=== PATIENT | female | born 1960 | race Caucasian/White ===

== ENCOUNTER 2021-02-28 08:37 | Inpatient (IN) | payer OTHER, SELFPAY ==
[~2021-02-28] VITALS: Ht 149.9 cm; Wt 49.9 kg
[2021-02-28] MEDS: ALBUTEROL SULFATE/IPRATROPIU 3 ML SOL IH SCH ×3 (08:18→20:35)
[2021-02-28 08:37] VITALS: BP 143/90
--- NOTE | 2021-02-28 08:37 | NUR ---
Patient BIBA to bed 3 at this time. Addendum: 02/28/21 at 0855 by JOSE CRUZ Patient BIBA to bed 2.
--- NOTE | 2021-02-28 08:45 | NUR ---
DR RAY AT [facility] EVALUATING PT
--- NOTE | 2021-02-28 08:50 | NUR ---
60 Y/O TRANSIENT FEMALE BIBA C/O BODY PAIN AND LOWER EXTREMITY SWELLING X2 MONTHS. PT HAS COUGH AND STATES DIFFICULTY BREATHING. +N/V. PER MEDICS, PT WAS LAYING ON THE SIDEWALK STATING SHE "COULDNT WALK". PT STATES SHES BEEN IN HOSPITALS RECENTLY BUT HAS NOT TAKEN ANY MEDICATIONS. PT UNABLE TO RECALL DIAGNOSIS. IV ACCESS PLACED, UNABLE TO DRAW LABS, RT AT BEDSIDE FOR ABG'S IN GURNEY, LOW POSITION, LOCKED, CALL LIGHT IN PLACE.
--- NOTE | 2021-02-28 09:10 | NUR ---
IV ACCESS OBTAINED, PLACED ON MONITORS. CORPORATE TAX PREPARER SHOWS SINUS TACH. POSITIONED FOR COMFORT, BED IS LOW AN LOCKED BELONGINGS BAGGED AND PLACED ON GURNEY WITH PATIENT. OCC DRY COUGH NOTED.
[2021-02-28 09:39] LABS: BASOPHILS # (AUTO) 0.1 K/uL (0.00-0.22); BASOPHILS % (AUTO) 1.1 % (0.0-2.0); EOSINOPHILS % (AUTO) 0.3 % (0.0-4.0); HEMATOCRIT 42.1 % (36-48); HEMOGLOBIN 13.3 g/dL (12.0-16.0); LYMPHOCYTES # (AUTO) 1.3 K/uL (2.5-16.5); LYMPHOCYTES % (AUTO) 17.2 % (20.5-51.1); MEAN CORPUSCULAR HEMOGLOBIN 28 pg (27-31); MEAN CORPUSCULAR HGB CONC 32 g/dL (33-37); MEAN CORPUSCULAR VOLUME 89.4 fL (80-94); MONOCYTES # (AUTO) 0.8 K/uL (0.8-1.0); MONOCYTES % (AUTO) 11.1 % (1.7-9.3); NEUTROPHILS # (AUTO) 5.1 K/uL (1.8-7.7); NEUTROPHILS % (AUTO) 70.3 % (42.2-75.2); PLATELET COUNT (AUTO) 252 K/uL (140-450); RED BLOOD CELL COUNT(AUTO) 4.71 MIL/uL (4.20-5.40); RED CELL DISTRIBUTION WIDTH 22.1 % (11.6-13.7); WHITE BLOOD COUNT (AUTO) 7.3 K/uL (4.8-10.8)
[2021-02-28 10:06] LABS: ALBUMIN 3.3 g/dL (3.4-5.0); ANION GAP 16.6 (8-16); CARBON DIOXIDE 21.8 mmol/L (21-32); CREATININE 1.3 mg/dL (0.6-1.3); POTASSIUM 5.4 mmol/L (3.5-5.1); TOTAL BILIRUBIN 1.7 mg/dL (0.0-1.0)
--- NOTE | 2021-02-28 10:10 | NUR ---
[facility] in [facility] - 02/28/21 at 1102 by JANELLE NORMAL SALINE 1000ML W/O INFUSING W/O PER DR VIEIRA VERBAL ORDER.
--- NOTE | 2021-02-28 10:13 | NUR ---
IV INFILATRATED, DC'D AND RESTARTED.
[2021-02-28] MEDS ORDERED: NACL 0.9% 1,000 ML IV ONE (10:50)
[2021-02-28] MEDS ORDERED: FUROSEMIDE 40 MG/4 ML VIAL IVP SCH (11:00)
[2021-02-28] MEDS ORDERED: ASPIRIN 81 MG TAB.CHEW PO ONE (11:00)
--- NOTE | 2021-02-28 11:02 | NUR ---
DR RAY STATES HE DID NOT ORDER FLUIDS, FLUIDS DC'D, 100 CC INFUSED.
[2021-02-28] MEDS ORDERED: POTASSIUM CHLORIDE 10 MEQ TABER PO PRN (11:15)
[2021-02-28] MEDS ORDERED: MAGNESIUM OXIDE 400 MG TAB PO PRN (11:15)
[2021-02-28] MEDS ORDERED: KCL 20 MEQ/WATER INJ PREMIX 200 ML IV PRN (11:15)
[2021-02-28] MEDS ORDERED: ONDANSETRON 4 MG/2 ML VIAL IVP PRN (11:15)
[2021-02-28] MEDS ORDERED: HYDROcodone/APAP 5/325 MG 1 TAB TAB PO PRN (11:15)
[2021-02-28] MEDS ORDERED: LORazepam 1 MG TAB PO PRN (11:15)
[2021-02-28] MEDS ORDERED: MAG SULF 2000 MG/WATER PREMIX 50 ML IV PRN (11:15)
[2021-02-28] MEDS ORDERED: ACETAMINOPHEN 325 MG TAB PO PRN (11:15)
[2021-02-28] MEDS: FUROSEMIDE 40 MG/4 ML VIAL IVP SCH (11:39)
--- NOTE | 2021-02-28 11:53 | NUR ---
TRANSFER OF CARE AT THIS TIME.
--- NOTE | 2021-02-28 12:02 | NUR ---
PT GIVEN BED ROEBRTS TO OBTAIN URINE SAMPLE
--- NOTE | 2021-02-28 12:40 | NUR ---
PT GIVEN LUNCH TRAY. PT ON PLANT AND EQUIPMENT WORKER MONITOR, VSS. WILL CONTINUE TO MONITOR
[2021-02-28 12:42] LABS: APPEARANCE,URINE CLEAR (CLEAR); BILIRUBIN,URINE 1+ (NEGATIVE); BLOOD, URINE NEGATIVE (NEGATIVE); COLOR,URINE YELLOW (YELLOW); LEUKOCYTE ESTERASE ,URINE TRACE (NEGATIVE); NITRITE, URINE NEGATIVE (NEGATIVE); UGLUCOSE NEGATIVE (NEGATIVE)
[2021-02-28 12:53] LABS: RBC,URINE NONE SEEN /HPF (0-5)
[2021-02-28 13:08] LABS: BARBITURATE, URINE NEGATIVE ng/ml (NEG <=200); BENZODIAZEPINE, URINE NEGATIVE ng/mL (NEG <=200); CANNABINOID, URINE NEGATIVE ng/mL (NEG <=50); COCAINE, URINE NEGATIVE ng/mL (NEG <=300); OPIATE, URINE NEGATIVE ng/mL (NEG <=2000); PHENCYCLIDINE SCREEN,URINE NEGATIVE ng/mL (NEG <=25)
--- NOTE | 2021-02-28 13:40 | NUR ---
RT AT BEDSIDE FOR BREATHING TREATMENT
--- NOTE | 2021-02-28 15:20 | NUR ---
PT RESTING IN BED WITH EVEN AND UNLABORED RESPIRATIONS. PT ON WOOD CABINETMAKER, VSS. WILL CONTINUE TO MONITOR
--- NOTE | 2021-02-28 18:48 | NUR ---
DINNER PROVIDED TO PATIENT. ALL NEEDS MET AT THIS TIME.
--- NOTE | 2021-02-28 21:12 | NUR ---
Patient will be admitted to care of DR. DENG. Admited to TELE. Will go to room 112. Belongings list completed. Report to OSORIO FAGAN AT BEDSIDE.
[2021-02-28 22:00] VITALS: BP 120/81
--- NOTE | 2021-02-28 22:00 | NUR ---
Admitted from ER TO TELEMETRY UNIT , with chief complaint of GEN BODY SWELLING, COUGH, SOB DURING EXERTION, FOR 2 MONTHS NOW.60 y/o ,Female, Cooperative, AWAKE, A/OX3. RESPIRATION EVEN AND UNLABORED. ON 02 AT 2 LITERS VIA N/C, 02 SAT - 98%. LUNG SOUNDS DIMINISHED ON BILATERAL AUSCULTATION. ABDOMEN SOFT, NON TENDER WITH POSITIVE BOWEL SOUNDS ON ALL QUADRANTS. HOMELESS, VERBALIZED SHE LIVES IN A MOTEL IN [place], POLICE DEPT IS PAYING FOR IT UNTIL SHE FINDS A RETIREMENT OR HOUSE WHERE SHE CAN STAY. CLAIMED SHE HAS NO FAMILY. HEAD TO TOE ASSESSMENT DONE WITH CHARGE NURSE SAVANNA, SKIN IS INTACT. DENIES PAIN 0/10. SR - ST ON TELE MONITORING.oriented to call light, bed, phone,television, bathroom, smoking policy,visiting hours, procedures, ID bracelet on. Belongings list checked.
[2021-03-01] VITALS: BP 116/80
--- NOTE | 2021-03-01 | NUR ---
ASSISTED TO USE THE BEDPAN, VOIDED 200 ML OF CLEAR YELLOW URINE.
--- NOTE | 2021-03-01 00:14 | NUR ---
Patient's Plan of Care was discussed and reviewed with SUPERVISOR NET MAKING: GRACIA LAM
[2021-03-01] MEDS: FUROSEMIDE 40 MG/4 ML VIAL IVP SCH ×2 (00:35→06:21)
--- NOTE | 2021-03-01 02:00 | NUR ---
HAD ACCIDENTALLY WET THE BED, ASSISTED TO CHANGE GOWN. APPLE JUICE GIVEN REQUESTED AND WARM BLANKET.
[2021-03-01] MEDS: ALBUTEROL SULFATE/IPRATROPIU 3 ML SOL IH SCH ×2 (02:15→13:55)
--- NOTE | 2021-03-01 04:00 | NUR ---
ASSISTED WITH THE BEDPAN. VOIDED 200 ML CLEAR YELLOW URINE. INSTRUCTION GIVEN ON HOW TO PREVENT FALLING OUT BED. VERBALIZED UNDERSTANDING.
[2021-03-01 05:22] VITALS: BP 110/80
--- NOTE | 2021-03-01 06:00 | NUR ---
ASSISTED WITH THE BEDPAN, VOIDED 200 ML OF CLEAR YELLOW URINE.
--- NOTE | 2021-03-01 07:14 | NUR ---
CONDITION REMAIN STABLE. ENDORSED TO AM SHIFT NURSE FOR CONTINUITY OF CARE.
--- NOTE | 2021-03-01 07:15 | NUR ---
RECEIVED REPORT FROM CLINICAL NURSING ASSISTANT NURSE FOR CONTINUITY OF PATIENT CARE. L AC 22G SALINE LOCK PATENT AND INTACT. ALL SAFETY MEASURES IN PLACE. WILL CONTINUE TO MONITOR. Addendum: 03/01/21 at 0755 by Gely Campo RN RN PATIENT ON 2 LITER NC
[2021-03-01 07:17] LABS: BASOPHILS # (AUTO) 0.1 K/uL (0.00-0.22); BASOPHILS % (AUTO) 1.2 % (0.0-2.0); EOSINOPHILS # (AUTO) 0.3 K/uL (0-0.4); EOSINOPHILS % (AUTO) 3.5 % (0.0-4.0); HEMATOCRIT 36.9 % (36-48); HEMOGLOBIN 11.8 g/dL (12.0-16.0); LYMPHOCYTES # (AUTO) 1.7 K/uL (2.5-16.5); MEAN CORPUSCULAR HEMOGLOBIN 28 pg (27-31); MEAN CORPUSCULAR HGB CONC 32 g/dL (33-37); MEAN CORPUSCULAR VOLUME 88.8 fL (80-94); MONOCYTES # (AUTO) 1.1 K/uL (0.8-1.0); NEUTROPHILS # (AUTO) 4.3 K/uL (1.8-7.7); NEUTROPHILS % (AUTO) 57.3 % (42.2-75.2); PLATELET COUNT (AUTO) 254 K/uL (140-450); RED BLOOD CELL COUNT(AUTO) 4.15 MIL/uL (4.20-5.40); RED CELL DISTRIBUTION WIDTH 21.1 % (11.6-13.7); WHITE BLOOD COUNT (AUTO) 7.5 K/uL (4.8-10.8)
[2021-03-01 07:21] LABS: CHOL/HDL RATIO 3.2 (1-4.5); MAGNESIUM 1.8 mg/dL (1.8-2.4); PHOSPHORUS 3.7 mg/dL (2.5-4.9)
[2021-03-01 07:22] LABS: ALBUMIN 2.7 g/dL (3.4-5.0); ANION GAP 14.8 (8-16); CARBON DIOXIDE 22.2 mmol/L (21-32); CREATININE 1.2 mg/dL (0.6-1.3)
[2021-03-01 08:00] VITALS: BP 124/83
--- NOTE | 2021-03-01 08:51 | NUR ---
PATIENT HAS BEEN SCREENED AND CATEGORIZED HIGH NUTRITION RISK. PATIENT WILL BE SEEN WITHIN 1-2 DAYS OF ADMISSION. 03/01/21 [facility]NS REFERRAL RECEIVED FOR UNINTENTIONAL WEIGHT LOSS AND DECREASED APPETITE OVER [address]
[2021-03-01] MEDS ORDERED: ENOXAPARIN 40 MG/0.4 ML SYR SUBQ SCH (09:00)
[2021-03-01] MEDS ORDERED: DOCUSATE SODIUM 100 MG GELCAP PO SCH (09:00)
--- NOTE | 2021-03-01 10:16 | NUR ---
PATIENT AWAKE AND ALERT. NO ACUTE DISTRESS NOTED. PATIENT ON 2 L VIA NC. ROUTINE MEDICATION GIVEN. ALL SAFETY MEASURES IN PLACE. WILL CONTINUE TO MONITOR.
[2021-03-01 12:00] VITALS: BP 109/72
--- NOTE | 2021-03-01 12:20 | NUR ---
PATIENT AWAKE SITTING UP IN BED. PATIENT HAVING LUNCH. PATIENT DENIES PAIN AT THIS TIME. PATIENT ON 2 L VIA NC SATING ABOVE 96%. ALL SAFETY MEASURES IN PLACE. WILL CONTINUE TO MONITOR.
--- NOTE | 2021-03-01 14:55 | NUR ---
PATIENT SLEEPING. BREATHING EVEN AND UNLABORED. ALL SAFETY MEASURES IN PLACE. WILL CONTINUE TO MONITOR.
--- NOTE | 2021-03-01 15:26 | NUR ---
DC PLANNING: CM MET WITH PATIENT AT BEDSIDE TO DISCUSS DC PLANNING. PATIENT STATES SHE'S BEEN HOMELESS FOR ABOUT 2 MONTHS AND HAS NO OTHER FAMILY OR SUPPORT NETWORK. IS INDEPENDENT IN ALL ACTIVITIES, WAS WORKING IN OR RECENTLY, ALSO STATES THAT [facility] HAD ARRANGED FOR A MOTEL ROOM FOR HER PRIOR TO HER HOSPITALIZATION. OFFERED PATIENT POTENTIAL PLACEMENT THROUGH THE [employer], PATIENT STATES SHE WANTS TO RETURN TO THE [facility] SHE WAS BIB [facility]BULANCE FROM AND THAT THEY WILL HELP HER. PATIENT STATES SHE HAS NO CURRENT SOURCE OF INCOME AND NEEDS HELP GETTING SSI. CM ENDORSED THAT THE [facility] COULD PROBABLY GUIDE HER ON HOW TO APPLY, PATIENT AGAIN STATED THAT SHE WILL RETURN TO THE [facility] AND SLEEP THERE AND THAT THEY WILL HELP HER. PATIENT STATES SHE HASN'T SPOKEN TO ANYONE THERE AND CANNOT CONFIRM WHO WOULD HELP HER AND AGAIN OFFERED PLACEMENT OR A [facility], PATIENT AGAIN DECLINED GOING ANYWHERE EXCEPT THE [facility]. CM WILL FOLLOW FOR NEEDS.
[2021-03-01 16:00] VITALS: BP 107/66
--- NOTE | 2021-03-01 16:10 | NUR ---
PATIENT AWAKE SITTING UP IN BED. NO ACUTE DISTRESS NOTED. ALL SAFETY MEASURES IN PLACE. WILL CONTINUE TO MONITOR.
--- NOTE | 2021-03-01 17:39 | NUR ---
PATIENT IS AWAKE AND ALERT X4. NO SOB OR RESPIRATORY DISTRESS NOTED. DISCHARGE INSTRUCTIONS GIVEN. PATIENT SIGNED ALL DISCHARGE DOCUMENTS. PATIENT VERBALIZED UNDERSTANDING. WRISTBAND AND IV REMOVED. IV CATHETER INTACT. PATIENT STATES "GOING TO STAY AT [facility]AR [facility]." SHOES AND TAXI VOUCHER PROVIDED FOR PATIENT. ALL PERSONAL BELONGINGS TAKEN BY PATIENT. PATIENT WHEELED TO FRONT LOBBY. PATIENT ABLE TO WALK WITHOUT DIFFICULTY.
== END 2021-03-01 17:40 | disposition home or self-care (01) | DRG 194 ==
LOC: EDBD 08:37 → MED 08:37 → UNDOADMIN 11:15 → MTU 11:15
PROVIDERS: ADMIT Hospitalist; ATTEND Hospitalist
DX: I50.9 Heart failure, unspecified (principal); E87.2 Acidosis; N17.9 Acute kidney failure, unspecified; Z20.822 Contact with and (suspected) exposure to COVID-19; E87.5 Hyperkalemia; E80.6 Other disorders of bilirubin metabolism; N18.9 Chronic kidney disease, unspecified; I42.9 Cardiomyopathy, unspecified; T50.905A Adverse effect of unspecified drugs, medicaments and biological substances, initial encounter; Z59.0 Homelessness; Y92.89 Other specified places as the place of occurrence of the external cause
CPT/HCPCS: 36415; 36600; 71045; 80053; 80305; 81001; 82803; 83036; 83605; 83735; 83880; 84100; 84484; 85025; 87040; 87081; 87086; 93005; 94640; 96374; 99285; J1650; J1940

== ENCOUNTER 2021-04-10 19:00 | Inpatient (IN) | payer OTHER, SELFPAY ==
[~2021-04-10] VITALS: Ht 149.9 cm; Wt 42.6 kg
[2021-04-10 19:06] VITALS: BP 153/104
--- NOTE | 2021-04-10 19:11 | NUR ---
BIBA TO BED 12
--- NOTE | 2021-04-10 19:30 | NUR ---
60 yo f biba from home with c/c of not feeling well x1wk. pt reports body pain 8/10,described as "mild and dull all over body". pt states it worsens with movement, denies taking medication for pain. pt's abd is distended, has multiple scars, pt's states she doesnt know what they are for. pt said she was admitted to [facility] but does not know why. pt says she gets fluids drained from back but doesnt know why. pt heard coughing, productive. lung sound clear throughout lung field. all needs met at this time. side rails x2, bed locked in lowest position. hx: chf, htn nka
[2021-04-10 19:51] LABS: BASOPHILS # (AUTO) 0.1 K/uL (0.00-0.22); BASOPHILS % (AUTO) 1.7 % (0.0-2.0); EOSINOPHILS # (AUTO) 0.2 K/uL (0-0.4); EOSINOPHILS % (AUTO) 2.9 % (0.0-4.0); HEMATOCRIT 37.1 % (36-48); HEMOGLOBIN 11.5 g/dL (12.0-16.0); LYMPHOCYTES # (AUTO) 1.7 K/uL (2.5-16.5); LYMPHOCYTES % (AUTO) 26.5 % (20.5-51.1); MEAN CORPUSCULAR HEMOGLOBIN 29 pg (27-31); MEAN CORPUSCULAR HGB CONC 31 g/dL (33-37); MEAN CORPUSCULAR VOLUME 91.8 fL (80-94); MONOCYTES # (AUTO) 1.1 K/uL (0.8-1.0); MONOCYTES % (AUTO) 17.3 % (1.7-9.3); NEUTROPHILS # (AUTO) 3.4 K/uL (1.8-7.7); NEUTROPHILS % (AUTO) 51.6 % (42.2-75.2); PLATELET COUNT (AUTO) 247 K/uL (140-450); RED BLOOD CELL COUNT(AUTO) 4.05 MIL/uL (4.20-5.40); WHITE BLOOD COUNT (AUTO) 6.5 K/uL (4.8-10.8)
[2021-04-10 20:03] LABS: ALBUMIN 3.4 g/dL (3.4-5.0); ANION GAP 15.7 (8-16); CARBON DIOXIDE 22.7 mmol/L (21-32); POTASSIUM 3.4 mmol/L (3.5-5.1); TOTAL BILIRUBIN 1.1 mg/dL (0.0-1.0)
--- NOTE | 2021-04-10 20:06 | NUR ---
pt taken to rad.
--- NOTE | 2021-04-10 20:22 | NUR ---
back from rAD.
--- NOTE | 2021-04-10 21:54 | NUR ---
PROVIDED PT WITH ORANGE JUICE AND EXTRA BLANKET.
--- NOTE | 2021-04-10 23:00 | NUR ---
PT IS AWAKE AND ALERT, SITTING UP IN BED. VSS. PT IS IN STABLE CONDITION. ALL NEEDS MET AT THIS TIME. BED LOCKED IN LOWEST POSITION, SIDE RAILS X2.
[2021-04-10] MEDS ORDERED: FUROSEMIDE 40 MG/4 ML VIAL IVP ONE (23:20)
--- NOTE | 2021-04-10 23:34 | NUR ---
PT REPORTED CHEST PAIN 01/28, NONRAD. DENIES N/V/SOB. ERMD MADE AWARE, ORDERS CARRIED OUT.
[2021-04-10] MEDS ORDERED: ENOXAPARIN 40 MG/0.4 ML SYR SUBQ ONE (23:35)
[2021-04-10] MEDS ORDERED: MORPHINE SULFATE 4 MG/ML SYR IVP ONE (23:35)
[2021-04-10] MEDS ORDERED: NITROGLYCERIN 2% 1 GM PKT TP ONE (23:35)
--- NOTE | 2021-04-10 23:37 | NUR ---
PT ASKED FOR FOOD. PT GIVEN SANDWHICH, APPLE JUICE AND KAIT CRACKERS. PT IS SITTING UP IN BED EATING, WOULD LIKE TO FINISH EATING BEFORE MEDS.
--- NOTE | 2021-04-10 23:58 | NUR ---
pt ambulated to and back to bed with steady gait.
--- NOTE | 2021-04-11 00:15 | NUR ---
pt is resting. equal rise and fall of chest wall. vss. pt in stable condition. pt asked for lights to be turned off. all needs met at this time. bed locked in lowest position, side rails x2.
--- NOTE | 2021-04-11 00:34 | NUR ---
florence collected. pt walked to rr and bcak to bed with steady gait.
[2021-04-11] MEDS ORDERED: POTASSIUM CHLORIDE 10 MEQ TABER PO PRN (00:55)
[2021-04-11] MEDS ORDERED: MAGNESIUM OXIDE 400 MG TAB PO PRN (00:55)
[2021-04-11] MEDS ORDERED: ACETAMINOPHEN 325 MG TAB PO PRN (00:55)
[2021-04-11] MEDS ORDERED: HYDROcodone/APAP 5/325 MG 1 TAB TAB PO PRN (00:55)
[2021-04-11] MEDS ORDERED: KCL 20 MEQ/WATER INJ PREMIX 200 ML IV PRN (00:55)
[2021-04-11] MEDS ORDERED: MAG SULF 2000 MG/WATER PREMIX 50 ML IV PRN (00:55)
[2021-04-11] MEDS ORDERED: ZOLPIDEM 5 MG TAB PO PRN (00:55)
[2021-04-11] MEDS ORDERED: LORazepam 1 MG TAB PO PRN (00:55)
--- NOTE | 2021-04-11 01:26 | NUR ---
ASSISTED PT WITH BEDPAN. PT URINATED APPROX 350 CC CLEAR, YELLOW URINE. PERINEAL CARE PERFORMED. ALL NEEDS MET AT THIS TIME.
--- NOTE | 2021-04-11 02:07 | NUR ---
pt is resting. equal rise and fall of chest wall. vss. pt in stable condition. all needs met at this time. bed locked in lowest position, side rails x2.
--- NOTE | 2021-04-11 02:57 | NUR ---
ASSISTED PT ONTO BEDPAN. COLLECTED URINE FOR UDS.PT CLEANED. URINE TAKEN TO LAB.
--- NOTE | 2021-04-11 03:45 | NUR ---
REPORT GIVEN TO OSORIO TOSCANO. [id number]
[2021-04-11 03:48] LABS: BARBITURATE, URINE NEGATIVE ng/ml (NEG <=200); BENZODIAZEPINE, URINE NEGATIVE ng/mL (NEG <=200); CANNABINOID, URINE NEGATIVE ng/mL (NEG <=50); COCAINE, URINE NEGATIVE ng/mL (NEG <=300); OPIATE, URINE NEGATIVE ng/mL (NEG <=2000); PHENCYCLIDINE SCREEN,URINE NEGATIVE ng/mL (NEG <=25)
--- NOTE | 2021-04-11 04:22 | NUR ---
Patient will be admitted to care of . Admited to tele. Will go to room 104b. Belongings list completed. Report to [facility].
[2021-04-11] MEDS ORDERED: FUROSEMIDE 40 MG/4 ML VIAL IVP SCH ×2 (05:00→11:01)
[2021-04-11 05:34] VITALS: BP 148/89
--- NOTE | 2021-04-11 07:54 | NUR ---
RECEIVED REPORT FROM FELICITA [id number]
--- NOTE | 2021-04-11 07:55 | NUR ---
RECEIVED REPORT FROM NIGHT NURSE, PT CAME TO THE UNIT LAST NIGHT FOR SOB DIAGNOSIS IS CHF EXACERBATION. PT HAS IV ACCESS ON L AC 20 GAUGE SALINE LOCK. PT IS ALERT ORIENTED X 4 VERBALLY RESPONSIVE, DENIES PAIN OR DISCOMFORT AT THE MOMENT. POC IS DISCUSSED WILL CONTINUE TO FOLLOW IT.
[2021-04-11 08:00] VITALS: BP 128/100
[2021-04-11] MEDS: DOCUSATE SODIUM 100 MG GELCAP PO SCH (08:15)
[2021-04-11] MEDS: ENOXAPARIN 40 MG/0.4 ML SYR SUBQ SCH (08:17)
--- NOTE | 2021-04-11 08:21 | NUR ---
ADMINISTERED SCHEDULE MEDICATIONS PER MD ORDER, PT TOLERATED WELL. DENIES PAIN AND DISCOMFORT.
--- NOTE | 2021-04-11 08:53 | NUR ---
PATIENT HAS BEEN SCREENED AND CATEGORIZED MODERATE NUTRITION RISK. PATIENT WILL BE SEEN WITHIN 3-5 DAYS OF ADMISSION. 04/13/21 04/15/[address]
--- NOTE | 2021-04-11 11:32 | NUR ---
DC PLANNIN YRS OLD FEMALE HOMELESS PATIENT WAS ADMITTED FROM ER WITH A DX OF CHF EXACERBATION. 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 CXR SHOWED MILD INTERSTITIAL EDEMA. CT ABD SHOWED SMALL RIGHT AND TRACE LEFT PLEURAL EFFUSION. RAPID COVID TEST NEGATIVE . ADMINISTERED LASIX IV AND CONTINUED HOME MEDS. CONSULTED WITH [employer]. MANUFACTURING ELECTRICIAN TO EVALUATE HOMELESSNESS. DC PLAN TO GO HOME WHEN STABLE CM TO FOLLOW Addendum: 04/13/21 at 1236 by Maria Dolores Melgar RN DC PLANNING: CALLED DR DORIS ECHEVARRIA AND ASKED HIM THAT HE TAKES [facility] PATIENT, HE CONFIRMED AND WILLING TO FOLLOW UP. FAXED TO [facility] FOR AUTHORIZATION. CM TO FOLLOW Addendum: 04/13/21 at 1650 by Maria Dolores Melgar RN DC PLANNING: RECEIVED AN AUTH FROM [facility] [id number] CALLED DR An GEORGE OFFICE MADE APPOINTMENT APR 26 AT 3:15 PM NOTIFIED PATIENT. CM TO FOLLOW
[2021-04-11 12:00] VITALS: BP 149/77
--- NOTE | 2021-04-11 14:46 | NUR ---
PT IS IN THE BED AT THE MOMENT. DENIES PAIN AND DISCOMFORT. WILL CONTINUE TO MONITOR PT.
[2021-04-11 16:00] VITALS: BP 146/75
[2021-04-11] MEDS: FUROSEMIDE 40 MG/4 ML VIAL IVP SCH (17:17)
--- NOTE | 2021-04-11 19:23 | NUR ---
ENDORSED THE NIGHT NURSE FOR CONTINUITY OF CARE, PT IS STABLE. SIGNING OFF.
[2021-04-11 22:20] VITALS: BP 148/78
--- NOTE | 2021-04-11 23:25 | NUR ---
the patient vitals are stable , breathing is even and unlabored , she sleeps comforabel in her bed, comfort and safety measures were provided.call [facility] is in reach
[2021-04-12 04:00] VITALS: BP 129/76
[2021-04-12 07:42] LABS: ANION GAP 13.2 (8-16); BASOPHILS # (AUTO) 0.1 K/uL (0.00-0.22); BASOPHILS % (AUTO) 0.8 % (0.0-2.0); CARBON DIOXIDE 24.6 mmol/L (21-32); CHOL/HDL RATIO 3.6 (1-4.5); EOSINOPHILS # (AUTO) 0.5 K/uL (0-0.4); EOSINOPHILS % (AUTO) 7.7 % (0.0-4.0); HEMATOCRIT 36.9 % (36-48); LYMPHOCYTES # (AUTO) 2.3 K/uL (2.5-16.5); LYMPHOCYTES % (AUTO) 33.4 % (20.5-51.1); MAGNESIUM 1.7 mg/dL (1.8-2.4); MEAN CORPUSCULAR HEMOGLOBIN 29 pg (27-31); MEAN CORPUSCULAR HGB CONC 32 g/dL (33-37); MEAN CORPUSCULAR VOLUME 89.6 fL (80-94); MONOCYTES # (AUTO) 1.1 K/uL (0.8-1.0); MONOCYTES % (AUTO) 16.2 % (1.7-9.3); NEUTROPHILS # (AUTO) 2.9 K/uL (1.8-7.7); NEUTROPHILS % (AUTO) 41.9 % (42.2-75.2); PLATELET COUNT (AUTO) 277 K/uL (140-450); POTASSIUM 3.8 mmol/L (3.5-5.1); RED BLOOD CELL COUNT(AUTO) 4.12 MIL/uL (4.20-5.40); RED CELL DISTRIBUTION WIDTH 19.7 % (11.6-13.7); TOTAL BILIRUBIN 0.9 mg/dL (0.0-1.0)
[2021-04-12 08:00] VITALS: BP 135/90
--- NOTE | 2021-04-12 08:00 | NUR ---
RECEIVED REPORT AT BEDSIDE FROM MIDWIFE PRACTITIONER FOR CONTINUITY OF CARE. PATIENT ALERT AWAKE ORIENTED X4, NOT IN ANY DISTRESS NOTED. ON MONITOR SHOWS SR. WITH HEPLOCK DRY AND INTACT. CALL LIGHT WITHIN REACH. WILL CONTINUE TO MONITOR.
[2021-04-12] MEDS: DOCUSATE SODIUM 100 MG GELCAP PO SCH (09:01)
[2021-04-12] MEDS: FUROSEMIDE 40 MG/4 ML VIAL IVP SCH ×2 (09:02→18:32)
[2021-04-12] MEDS: ENOXAPARIN 40 MG/0.4 ML SYR SUBQ SCH (09:06)
[2021-04-12 12:00] VITALS: BP 108/75
--- NOTE | 2021-04-12 12:30 | NUR ---
DC PLANNING PATIENT IS A 60-YEAR OLD FEMALE HOMELESS ADMITTED IN THE [facility]/ER ON 04/11/2021UE TO ADVANCE CHF WITH POLYSUBSTANCE ABUSE WITH [employer] HER DRUG OS CHOICE. PATIENT WAS FOUND IN THE FRONT OF THE [facility] WITH TRANSIENT CONFUSION. ARCENIO MET WITH PATIENT AT BEDSIDE TO DISCUSS AND GATHER PATIENT'S COLLATERAL INFORMATION, EDUCATE AND PROVIDE HER WITH RESOURCES. PATIENT DURING HER ASSESSMENT REPORTED THAT SHE IS HOMELESS AND HAS BEEN STRUGGLING WITH FINDING PLACES TO LIVE FOR ABOUT 6 MONTHS. PER PATIENT SHE WAS EMPLOYED IN A [employer] [place] HOWEVER; BECAUSE OF THE PANDEMIC SHE WAS LAY OFF UNABLE TO PAY HER BILLS SHE LOST EVERYTHING AND NOW STAYS IN A [facility] IN [place]. SW DISCUSSED WITH PATIENT ABOUT ADVANCE DIRECTIVES HOWEVER; PATIENT REFUSED INFORMATION PACKET PROVIDED BY ARCENIO. PATIENT STATED "I HAVE NO ONE NOT EVEN FRIENDS, I KEEP TO MYSELF BECAUSE PEOPLE ARE MEAN" SW PROVIDED PATIENT WITH LONG-TERM RESOURCES,LOW COST CLINICS, WELL SUBSTANCE ABUSE REHAB PROGRAMS AVAILABLE IN THE AREA. PATIENT AGREED AND ACKNOLEDGE SHE NEEDS ASSISTANCE WITH HER S/B. AND THANKED THIS VAMP WETTER FOR THE RESOURCES. PATIENT REPORTED NOT HAVING A PCP TO FOLLOW UP WITH APPOINTMENT AFTER SHE IS DISCHARGE FROM [facility]. ARCENIO INFORMED PATIENT THAT SHE WILL MAKE AN APPOINTMENT FOR PATIENT TO FOLLOW UP. PATIENT REPORTED NOT HAVING OR NEEDING DME AND HAVING NO ISSUES GETTING HER PRESCRIBED MEDICATIONS. PER PATIENT SHE WILL TAKE THE BUS TO THE [place] SHE IS BEEN STAYING AFTER HER DISCHARGE FORM [facility]. ARCENIO WILL MAKE PATIENT'S FOLLOW UP CARE APPOINTMENT AND CARE NEEDED. Addendum: 04/12/21 at 1618 by Jania Blackwood CM ARCENIO CALLED [facility] AT TO SET UP A FOLLOW UP CARE APPOINTMENT FOR PATIENT WITHIN 7 DAYS OF DISCHARGE FROM [facility]. ARCENIO SPOKE TO DEBORAH WHO PROVIDED PATIENT'S APPOINTMENT FOR 04/19/2021 AT 2:30 PM AT [address] [facility] [place] [id number] . ARCENIO THANK HER FOR THE INFORMATION AND ENDED THE CALL. ARCENIO MET WITH PATIENT AT BEDSIDE AND PROVIDED HER WITH HER APPOINTMENT INFORMATION SCHEDULED FOR . ARCENIO HANDED APPOINTMENT NOTE TO PATIENT WITH APPOINTMENT
--- NOTE | 2021-04-12 14:18 | NUR ---
RESTING IN BED, NO C/O PAIN. WILL CONTINUE TO MONITOR.
[2021-04-12 16:00] VITALS: BP 111/79
--- NOTE | 2021-04-12 16:06 | NUR ---
ARCENIO CALLED [facility] AT TO SET UP A FOLLOW UP CARE APPOINTMENT FOR PATIENT WITHIN 7 DAYS OF DISCHARGE FROM [facility]. ARCENIO SPOKE TO DEBORAH WHO PROVIDED PATIENT'S APPOINTMENT FOR 04/19/2021 AT 2:30 PM AT [address] [facility] [id number] . SW THANK HER FOR THE INFORMATION AND ENDED THE CALL. ARCENIO MET WITH PATIENT AT BEDSIDE AND PROVIDED HER WITH HER APPOINTMENT INFORMATION SCHEDULED FOR . ARCENIO HANDED APPOINTMENT NOTE TO PATIENT WITH APPOINTMENT DATE, TIME, AND FACILITY ADDRESS. PATIENT THANK THIS FREIGHT ROUTER.
--- NOTE | 2021-04-12 19:21 | NUR ---
REPORT GIVEN TO AWNING FINISHER FOR CONTINUITY OF CARE. IN STABLE CONDITION.
[2021-04-12 20:00] VITALS: BP 101/59
[2021-04-12] MEDS: carvediloL 3.125 MG TAB PO SCH (21:23)
[2021-04-13] VITALS: BP 81/38
[2021-04-13 04:00] VITALS: BP 91/50
--- NOTE | 2021-04-13 07:22 | NUR ---
HANDOFF WITH OSORIO HOWELL. CHERIE FINE RN
[2021-04-13 07:25] LABS: BASOPHILS # (AUTO) 0.1 K/uL (0.00-0.22); BASOPHILS % (AUTO) 1.6 % (0.0-2.0); EOSINOPHILS # (AUTO) 0.5 K/uL (0-0.4); EOSINOPHILS % (AUTO) 7.3 % (0.0-4.0); HEMATOCRIT 36.2 % (36-48); HEMOGLOBIN 11.7 g/dL (12.0-16.0); LYMPHOCYTES # (AUTO) 1.7 K/uL (2.5-16.5); LYMPHOCYTES % (AUTO) 27.6 % (20.5-51.1); MEAN CORPUSCULAR HEMOGLOBIN 29 pg (27-31); MEAN CORPUSCULAR HGB CONC 32 g/dL (33-37); MEAN CORPUSCULAR VOLUME 89.1 fL (80-94); MONOCYTES # (AUTO) 1.1 K/uL (0.8-1.0); MONOCYTES % (AUTO) 17.6 % (1.7-9.3); NEUTROPHILS # (AUTO) 2.9 K/uL (1.8-7.7); NEUTROPHILS % (AUTO) 45.9 % (42.2-75.2); PLATELET COUNT (AUTO) 272 K/uL (140-450); RED BLOOD CELL COUNT(AUTO) 4.07 MIL/uL (4.20-5.40); RED CELL DISTRIBUTION WIDTH 18.6 % (11.6-13.7); WHITE BLOOD COUNT (AUTO) 6.3 K/uL (4.8-10.8)
--- NOTE | 2021-04-13 07:48 | NUR ---
RECEIVED REPORT FROM FINISH SPECIALIST FOR CONTINUITY OF CARE. PATIENT ALERT AWAKE ORIENTED X4.,NOT IN ANY DISTRESS NOTED. WITH HEPLOCK ON THE LEFT AC G 20 DRY AND INTACT. DENIES SOB AND PAIN. ON MONITOR SHOWS SR. CALL LIGHT WITHIN REACH. NEEDS ATTENDED. WILL CONTINUE TO MONITOR.
[2021-04-13 08:00] VITALS: BP 123/78
[2021-04-13] MEDS ORDERED: lisinopriL 5 MG TAB PO SCH (09:00)
[2021-04-13 09:01] LABS: ALBUMIN 2.7 g/dL (3.4-5.0); ANION GAP 10.1 (8-16); CARBON DIOXIDE 30.5 mmol/L (21-32); CREATININE 1.2 mg/dL (0.6-1.3); MAGNESIUM 1.8 mg/dL (1.8-2.4); POTASSIUM 3.6 mmol/L (3.5-5.1); TOTAL BILIRUBIN 0.5 mg/dL (0.0-1.0)
[2021-04-13] MEDS: DOCUSATE SODIUM 100 MG GELCAP PO SCH (09:26)
[2021-04-13] MEDS: carvediloL 3.125 MG TAB PO SCH (09:27)
[2021-04-13] MEDS: ENOXAPARIN 40 MG/0.4 ML SYR SUBQ SCH (09:28)
[2021-04-13] MEDS: FUROSEMIDE 40 MG/4 ML VIAL IVP SCH (09:30)
--- NOTE | 2021-04-13 10:00 | NUR ---
PATIENT RESTING IN BED. DR. KOO HERE AND PLAN DC OF THE PATIENT. DENIES PAIN. WILL CONTINUE TO MONITOR.
[2021-04-13] MEDS ORDERED: CARV3.122 PO (10:27)
[2021-04-13] MEDS ORDERED: FURO40TA9 PO (10:27)
[2021-04-13] MEDS ORDERED: LISI-648 PO (10:27)
[2021-04-13 12:00] VITALS: BP 110/69
--- NOTE | 2021-04-13 13:21 | NUR ---
IV REMOVED, TELEMETRY BOX REMOVED. DC PAPERS SIGNED.
--- NOTE | 2021-04-13 14:00 | NUR ---
DISCHARGE PATIENT TO HOME VIA WHEELCHAIR, WITH DC INSTRUCTION GIVEN AND VERBALIZED UNDERSTANDING. GAVE BUS PASS TO GO TO [facility]. PATIENT IN STABLE CONDITION.
[2021-04-14] MEDS ORDERED: FUROSEMIDE 40 MG TAB PO SCH (09:00)
== END 2021-04-13 14:00 | disposition home or self-care (01) | DRG 194 ==
LOC: MED 19:00 → MTU 04-11 01:01
PROVIDERS: ADMIT Internal Medicine; ATTEND Internal Medicine
DX: I11.0 Hypertensive heart disease with heart failure (principal); I42.0 Dilated cardiomyopathy; E83.51 Hypocalcemia; I50.23 Acute on chronic systolic (congestive) heart failure; Z20.822 Contact with and (suspected) exposure to COVID-19; Z59.0 Homelessness
CPT/HCPCS: 36415; 71045; 80053; 80305; 82140; 83036; 83690; 83735; 83880; 84484; 85025; 93005; 96372; 96374; 99291; J1650; J1940

== ENCOUNTER 2021-04-18 05:50 | Inpatient (IN) | payer OTHER, SELFPAY ==
[~2021-04-18] VITALS: Ht 149.9 cm; Wt 43.5 kg
[2021-04-18 05:50] VITALS: BP 146/95
[~2021-04-18 05:50] MED LIST: CARV3.122 PO; FURO40TA9 PO; LISI-648 PO
--- NOTE | 2021-04-18 05:52 | NUR ---
60 YO/F BIBA W C/O CHEST PAIN 8/10 PRESSURE LIKE INTERMITTENT X1 DAY W MOST FREQUENT EPISODE LASTING 45MIN, NON-RADIATING. PATIENT REPORTS MOST FRQUENT EPISODE BEGAN WHEN SHE WAS WALKING AND CONTINUED WHEN SHE WAS RESTING, +N AND DIZZYNESS. PATIENT DENIES ANY SOB OR VOMITING. S1 S2 PRESENT, +2 RADIAL AND PEDAL PULSES, CAP REFIL <3 SEC, +2 PITTING BL LOWER EXTREMITY EDEMA, SKIN WARM AND DRY. LUNG SOUNDS CLEAR THROUGH OUT W BREATHING EVEN AND UNLABORED, BOWEL SOUNDS PRESENT, ABDOMEN SOFT NON-TENDER. PATIENT WAS GIVEN 325 MG ASA AND NITRO SPRAY .4MG ON ROUTE BY [facility], PER PATIENT MEDICATIONS HELPED W CHEST PAIN. COUGH NOTED, PER PATIENT COUGH JUST BEGAN 2 MINUTES AGO. PATIENT SITTING IN BED LOCKED IN LOWEST POSITION W X1 SIDERAIL UP. CONNECTED TO MONITOR W VSS. PATIENT UNABLE TO PROVIDE URINE SAMPLE AT THIS TIME, WILL ATTEMPT LATER. PMH:CHF, HTN NKA
--- NOTE | 2021-04-18 05:53 | NUR ---
BIBA TAKEN TO BED #6
--- NOTE | 2021-04-18 06:16 | NUR ---
Dr. Loco examining patient.
--- NOTE | 2021-04-18 06:59 | NUR ---
X-Ray at bedside.
--- NOTE | 2021-04-18 07:26 | NUR ---
Pt report given to OSORIO MICHELE. Transfer of care at this time.
--- NOTE | 2021-04-18 08:04 | NUR ---
Patient appears to be resting with eyes closed, respirations even and unlabored. On bedside monitor tech. All needs met at this time.
[2021-04-18 08:14] LABS: BASOPHILS # (AUTO) 0.2 K/uL (0.00-0.22); EOSINOPHILS # (AUTO) 0.2 K/uL (0-0.4); MEAN CORPUSCULAR HGB CONC 31 g/dL (33-37)
[2021-04-18 08:23] LABS: ALBUMIN 3.5 g/dL (3.4-5.0); CARBON DIOXIDE 23.2 mmol/L (21-32); CREATININE 0.9 mg/dL (0.6-1.3); POTASSIUM 4.2 mmol/L (3.5-5.1); TOTAL BILIRUBIN 0.9 mg/dL (0.0-1.0)
[2021-04-18 08:25] LABS: BASOPHILS % (AUTO) 2.4 % (0.0-2.0); EOSINOPHILS % (AUTO) 2.4 % (0.0-4.0); HEMATOCRIT 40.4 % (36-48); HEMOGLOBIN 12.6 g/dL (12.0-16.0); LYMPHOCYTES # (AUTO) 2.7 K/uL (2.5-16.5); LYMPHOCYTES % (AUTO) 38.9 % (20.5-51.1); MEAN CORPUSCULAR HEMOGLOBIN 29 pg (27-31); MEAN CORPUSCULAR VOLUME 91.1 fL (80-94); MONOCYTES # (AUTO) 1.1 K/uL (0.8-1.0); MONOCYTES % (AUTO) 15.6 % (1.7-9.3); NEUTROPHILS # (AUTO) 2.8 K/uL (1.8-7.7); NEUTROPHILS % (AUTO) 40.7 % (42.2-75.2); PLATELET COUNT (AUTO) 272 K/uL (140-450); RED BLOOD CELL COUNT(AUTO) 4.43 MIL/uL (4.20-5.40); RED CELL DISTRIBUTION WIDTH 18.8 % (11.6-13.7); WHITE BLOOD COUNT (AUTO) 6.9 K/uL (4.8-10.8)
--- NOTE | 2021-04-18 09:32 | NUR ---
PATIENT AMBULATED TO RESTROOM WITH STEADY GAIT TO PROVIDE URINE
--- NOTE | 2021-04-18 09:34 | NUR ---
URINE COLLECTED AND WALKED TO LAB.
[2021-04-18] MEDS ORDERED: FUROSEMIDE 40 MG/4 ML VIAL IVP SCH (10:45)
[2021-04-18] MEDS ORDERED: ONDANSETRON 4 MG/2 ML VIAL IVP PRN (10:50)
[2021-04-18] MEDS ORDERED: ACETAMINOPHEN 325 MG TAB PO PRN (10:50)
[2021-04-18] MEDS ORDERED: NITROGLYCERIN 0.4 MG TAB SL PRN (10:55)
--- NOTE | 2021-04-18 11:04 | NUR ---
PATIENT PLACED IN GOWN, ON BEDSIDE CORE LOADER. DENIES PAIN OR DISCOMFORT AT THIS TIME. ALL NEEDS MET AT THIS TIME.
[2021-04-18 11:42] LABS: BARBITURATE, URINE NEGATIVE ng/ml (NEG <=200); BENZODIAZEPINE, URINE NEGATIVE ng/mL (NEG <=200); CANNABINOID, URINE NEGATIVE ng/mL (NEG <=50); COCAINE, URINE NEGATIVE ng/mL (NEG <=300); OPIATE, URINE NEGATIVE ng/mL (NEG <=2000); PHENCYCLIDINE SCREEN,URINE NEGATIVE ng/mL (NEG <=25)
--- NOTE | 2021-04-18 12:10 | NUR ---
RECEIVED REPORT ON PT FROM ER NURSE. AWAITING PT ARRIVAL.
--- NOTE | 2021-04-18 12:13 | NUR ---
Patient will be admitted to care of DR. SALDIVAR. Admited to TELE. Will go to room 105A. Belongings list completed. Report to JODIE.
[2021-04-18 12:27] VITALS: BP 139/97
--- NOTE | 2021-04-18 12:27 | NUR ---
PT ARRIVED ON UNIT. CONDITION IS STABLE. PT IS AA&OX4 AND AMBULATORY. ON RA WITH NORMAL, UNLABORED BREATHING. PT HAS SLIGHT COUGH, PT STATES IT JUST STARTED DUE TO ALLERGIES. SKIN IS INTACT WARM, DRY, AND INTACT. PT HAS LAC IV IN PLACE 20G. WILL CONTINUE TO MONITOR.
[2021-04-18 12:30] LABS: APPEARANCE,URINE CLEAR (CLEAR); BILIRUBIN,URINE NEGATIVE (NEGATIVE); BLOOD, URINE NEGATIVE (NEGATIVE); COLOR,URINE YELLOW (YELLOW); LEUKOCYTE ESTERASE ,URINE NEGATIVE (NEGATIVE); NITRITE, URINE NEGATIVE (NEGATIVE); UGLUCOSE NEGATIVE (NEGATIVE)
[2021-04-18 13:03] LABS: CREATINE KINASE MB 2.5 ng/mL (0-3.6)
[2021-04-18 13:18] LABS: RBC,URINE 0-5 /HPF (0-5); WBC,URINE 0-5 /HPF (0-5)
[2021-04-18] MEDS: FUROSEMIDE 40 MG/4 ML VIAL IVP SCH ×2 (13:22→22:30)
--- NOTE | 2021-04-18 14:21 | NUR ---
PT CONDITION IS STABLE. PT IS AWAKE AND WATCHING TV. PT DENIES PAIN OR DISCOMFORT AT THIS TIME. WILL CONTINUE TO MONITOR.
--- NOTE | 2021-04-18 15:20 | NUR ---
PT STABLE. CURRENTLY SLEEPING.
[2021-04-18 16:00] VITALS: BP 121/86
--- NOTE | 2021-04-18 17:30 | NUR ---
PT STABLE. PT SLEEPING.
--- NOTE | 2021-04-18 19:24 | NUR ---
GAVE CHANGE OF SHIFT REPORT TO NIGHT NURSE AT BEDSIDE FOR CONTINUITY OF CARE. PT STABLE. DISCUSSED POC.
[2021-04-18 20:00] VITALS: BP 117/82
[2021-04-18] MEDS: carvediloL 3.125 MG TAB PO SCH (22:30)
[2021-04-19] MEDS ORDERED: MUPIROCIN CA NASAL 2% 1GM TUBE NS SCH (00:40)
--- NOTE | 2021-04-19 03:00 | NUR ---
BEDSIDE REPRT WAS GIVEN BY THE CHARGE NURSE, PATEINT VITALS ARE STABLE. SHE SLEEPS COMFORTABEL IN BED, BED IS LOW POSITION . COMFORT AND SAFETY MEASURES ARE PROVIDED. CALL LIGHT IS IN REACH
[2021-04-19 03:27] VITALS: BP 115/72
[2021-04-19] MEDS: FUROSEMIDE 40 MG/4 ML VIAL IVP SCH (06:19)
--- NOTE | 2021-04-19 07:30 | NUR ---
RECEIVED BEDSIDE REPORT FROM ARTIFICIAL MARBLE WORKER NURSE [place] RN, PT SLEEPING, NO DISTRESS NOTED, AAOX4, IV TO LEFT AC 20G PATENT INTACT SL. PT ON ROOM AIR, NO SOB NOTED, INITIAL ASSESSMENT DONE, ALL SAFETY PRECAUTION MET, CALL LIGHT WITHIN REACH, WILL CONTINUE TO MONITOR.
[2021-04-19 07:33] LABS: BASOPHILS # (AUTO) 0.2 K/uL (0.00-0.22); BASOPHILS % (AUTO) 2.7 % (0.0-2.0); EOSINOPHILS # (AUTO) 0.3 K/uL (0-0.4); EOSINOPHILS % (AUTO) 4.8 % (0.0-4.0); HEMOGLOBIN 11.8 g/dL (12.0-16.0); LYMPHOCYTES # (AUTO) 1.9 K/uL (2.5-16.5); LYMPHOCYTES % (AUTO) 33.5 % (20.5-51.1); MEAN CORPUSCULAR HEMOGLOBIN 29 pg (27-31); MEAN CORPUSCULAR HGB CONC 32 g/dL (33-37); MONOCYTES # (AUTO) 0.9 K/uL (0.8-1.0); MONOCYTES % (AUTO) 16.2 % (1.7-9.3); NEUTROPHILS # (AUTO) 2.4 K/uL (1.8-7.7); NEUTROPHILS % (AUTO) 42.8 % (42.2-75.2); PLATELET COUNT (AUTO) 272 K/uL (140-450); RED BLOOD CELL COUNT(AUTO) 4.11 MIL/uL (4.20-5.40); RED CELL DISTRIBUTION WIDTH 18.7 % (11.6-13.7); WHITE BLOOD COUNT (AUTO) 5.7 K/uL (4.8-10.8)
[2021-04-19 08:00] VITALS: BP 120/79
[2021-04-19 08:09] LABS: ANION GAP 14.3 (8-16); CARBON DIOXIDE 24.2 mmol/L (21-32); POTASSIUM 3.5 mmol/L (3.5-5.1)
--- NOTE | 2021-04-19 09:19 | NUR ---
PATIENT HAS BEEN SCREENED AND CATEGORIZED MODERATE NUTRITION RISK. PATIENT WILL BE SEEN WITHIN 3-5 DAYS OF ADMISSION. 04/21/21 04/23/[address]
[2021-04-19] MEDS: carvediloL 3.125 MG TAB PO SCH ×2 (09:37→20:09)
[2021-04-19] MEDS: ASPIRIN 81 MG TAB.CHEW PO SCH (09:37)
[2021-04-19] MEDS: lisinopriL 5 MG TAB PO SCH (09:37)
--- NOTE | 2021-04-19 09:37 | NUR ---
DUE MEDICATIONS ADMINISTERED, PT TOLERATED WELL, NO DISTRESS NOTED, WILL CONTINUE TO MONITOR.
[2021-04-19] MEDS: ENOXAPARIN 40 MG/0.4 ML SYR SUBQ SCH (09:41)
--- NOTE | 2021-04-19 11:20 | NUR ---
PT SLEEPING, NO DISTRESS NOTED, WILL CONTINUE TO MONITOR.
[2021-04-19 12:00] VITALS: BP 102/71
[2021-04-19 13:04] LABS: CREATINE KINASE MB 1.3 ng/mL (0-3.6)
[2021-04-19] MEDS ORDERED: MAG SULF 2000 MG/WATER PREMIX 50 ML IV SCH (14:00)
--- NOTE | 2021-04-19 15:14 | NUR ---
PT REQUESTED EXTRA JELLO AND CRACKERS, GAVE TO PT.
[2021-04-19 16:00] VITALS: BP 97/63
--- NOTE | 2021-04-19 19:23 | NUR ---
ENDORSED PT TO LAWN MOWER NURSE DIOGENES AC FOR CONTINUOUS OF CARE.
--- NOTE | 2021-04-19 19:24 | NUR ---
RECEIVED REPORT FROM DAY SHIFT NURSE. PT RESTING IN BED. AAOX4, AMBULATORY, ABLE TO MAKE NEEDS KNOWN. RESPIRATIONS EVEN AND UNLABORED TO ROOM AIR. ABDOMEN SOFT AND NON-TENDER, ACTIVE BOWEL SOUNDS NOTED. SKIN IS WARM, DRY, AND INTACT. PT WITH IV ACCESS ON R AC G20 PATENT AND INTACT, SALINE LOCKED. PT DENIES ANY PAIN OR DISCOMFORT AT THIS TIME. NO REQUESTS MADE. POC DISCUSSED. SAFETY MEASURES IN PLACE, CALL LIGHT WITHIN REACH. WILL CONTINUE TO MONITOR.
[2021-04-19 20:00] VITALS: BP 100/57
--- NOTE | 2021-04-19 20:16 | NUR ---
VS TAKEN BP 110/57, HR 78. SCHEDULED CARVEDILOL HELD PER PARAMETER. PT DENIES ANY PAIN OR DISCOMFORT AT THIS TIME. WILL CONTINUE TO MONITOR.
--- NOTE | 2021-04-19 22:19 | NUR ---
SANDWICH PROVIDED REQUESTED. PT INSTRUCTED TO LIMIT WATER INTAKE. PT VERBALIZED UNDERSTANDING. PT DENIES ANY PAIN OR DISCOMFORT. CALL LIGHT WITHIN REACH. WILL CONTINUE TO MONITOR.
[2021-04-20] VITALS: BP 94/52
--- NOTE | 2021-04-20 00:24 | NUR ---
VS STABLE. PT RESTING IN BED. DENIES ANY PAIN OR DISCOMFORT, NO REQUESTS MADE. PT KEPT COMFORTABLE. CALL LIGHT WITHIN REACH. WILL CONTINUE TO MONITOR.
--- NOTE | 2021-04-20 01:55 | NUR ---
ASLEEP. VISIBLE CHEST RISE AND FALL NOTED. NO S/SX OF PAIN OR DISCOMFORT NOTED. PT KEPT COMFORTABLE. WILL CONTINUE TO MONITOR.
[2021-04-20 04:00] VITALS: BP 113/68
--- NOTE | 2021-04-20 04:11 | NUR ---
VS STABLE. PT RESTING IN BED. PT DENIES ANY PAIN OR DISCOMFORT AT THIS TIME. NO REQUESTS MADE. PT KEPT COMFORTABLE AND SAFE. CALL LIGHT WITHIN REACH, WILL CONTINUE TO MONITOR.
--- NOTE | 2021-04-20 07:18 | NUR ---
REPORT GIVEN TO GAIL AC FOR CONTINUITY OF CARE
--- NOTE | 2021-04-20 07:30 | NUR ---
RECEIVED PT IN BED, AAOX4. NO SOB NOTED. NO C/O PAIN AT THIS TIME. IV TO LAC PATENT AND INTACT. CHEST DIMINISHED AIR ENTRY TO THE BASES, OTHERWISE CLEAR. ABDOMEN SOFT, BOWEL SOUNDS PRESENT. INSTRUCTED PT TO CALL FOR ASSISTANCE, CALL LIGHT WITHIN REACH. VERBALIZED UNDERSTANDING.
[2021-04-20 08:00] VITALS: BP_SYST 109; BP_SYST 121; BP_DIAS 70; BP_DIAS 87
[2021-04-20] MEDS: carvediloL 3.125 MG TAB PO SCH (09:00)
[2021-04-20] MEDS ORDERED: FUROSEMIDE 40 MG/4 ML VIAL IVP SCH (09:00)
[2021-04-20] MEDS: lisinopriL 5 MG TAB PO SCH (09:00)
[2021-04-20] MEDS: ASPIRIN 81 MG TAB.CHEW PO SCH (09:27)
[2021-04-20] MEDS: ENOXAPARIN 40 MG/0.4 ML SYR SUBQ SCH (09:29)
[2021-04-20] MEDS ORDERED: LISI-648 PO (09:33)
[2021-04-20] MEDS ORDERED: FURO40TA9 PO (09:33)
[2021-04-20] MEDS ORDERED: ASPI81CT95 PO (09:33)
[2021-04-20] MEDS ORDERED: CARV3.122 PO (09:33)
--- NOTE | 2021-04-20 11:00 | NUR ---
FLAVIO-TRUCK SHOP SUPERVISOR CAME AT BEDSIDE TO TALK TO PT REGARDING DRUG REHAB. PLS REFER TO SW NOTES.
--- NOTE | 2021-04-20 12:30 | NUR ---
DISCHARGE INSTRUCTIONS GIVEN TO PT WHICH VERBALIZED FULL UNDERSTANDING OF THE TEACHINGS GIVEN AND THE NEED TO FOLLOW UP WITH OWN PCP ([facility]) IN 1-2 WEEKS. PT ALSO MADE AWARE THAT HER PRESCRIPTIONS WERE SENT OVER TO HER PREFERRED PHARMACY. ARM BANDS NAD IV REMOVED, CANNULA TIP INTACT. PT STATED SHE IS GOING TO A SENIOR LIVING IN [place], BUS PASS PROVIDED.
--- NOTE | 2021-04-20 12:45 | NUR ---
PT WHEELED OUT IN STABLE CONDITION. NO SOB NOTED. NO COMPLAINTS MADE. PACK OF FOOD TO GO AND BUS PASS PROVIDED REQUESTED BY PT.
--- NOTE | 2021-04-20 15:39 | NUR ---
DC PLANNING PATIENT IS A 60 YEAR OLD FEMALE ADMITTED TO THE [facility]/ED ON 04/19/2021 DUE TO CHEST PAIN AND CHF. PATIENT MET WITH ARCENIO AT BEDSIDE TO DISCUSS AND GATHER UPDATED INFORMATION THAT LEAD TO HER RE-ADMISSION AT THE [facility] FROM 04/11/2021 AND CURRENT ADMISSION ON 04/18/2021. PATIENT REPORTED THAT SHE IS STILL HOMELESS LEAVING IN A LONG TERM IN [place] NOW. HOWEVER; SHE IS NOT ACCEPTED IN THE LONG TERM WHEN SHE SHOWS UP UNDER THE INFLUENCE OF DRUGS AND OTHER SUBSTANCES. PATIENT ALSO REPORTED THAT SHE IS NOT FOLLOWING UP WITH THE RESOURCES PROVIDED BY ARCENIO SINCE LAST ADMISSION AND REPORTED UNABLE TO MAINTAIN HER SOBRIETY. PATIENT STATED SHE HAS NO ISSUES GETTING HER MEDICATIONS AND NOT NEEDING OR USING ANY DME AT THIS TIME. ARCENIO DISCUSSED AND ATTEMPTED TO PROVIDE TO PATIENT RESOURCES FOR SHELTERS LIST, LOW COST HOUSING LIS , SUBSTANCE ABUSE REHAB TREATMENT LIST, LOW COST CLINICS INFORMATION LIST AND OFFERED TO MAKE HER FOLLOW UP APPOINTMENT WITH PCP AND OVERSEER KOSHER KITCHEN. ARCENIO ALSO OFFERED PATIENT TO DO A REFERRAL FOR THE [facility]. PATIENT STATED " NO I DO NOT NEED RESOURCES OR REFERRALS I GOT ALL THE INFORMATION,IM NOT GOING TO FOLLOW UP WITH ANY APPOINTMENT; IM LEAVING BACK TO THE [facility]" PATIENT DECLINED ASSISTANCE, SW ENDED THE VISIT AND LEFT THE ROOM SO PATIENT CAN GET DRESS. SW WILL FOLLOW UP NEEDED.
== END 2021-04-20 13:05 | disposition home or self-care (01) | DRG 194 ==
LOC: MED 05:50 → MTU 10:55
PROVIDERS: ADMIT Internal Medicine; ATTEND Internal Medicine
DX: I11.0 Hypertensive heart disease with heart failure (principal); I42.0 Dilated cardiomyopathy; I50.43 Acute on chronic combined systolic (congestive) and diastolic (congestive) heart failure; I34.0 Nonrheumatic mitral (valve) insufficiency; I36.1 Nonrheumatic tricuspid (valve) insufficiency; Z20.822 Contact with and (suspected) exposure to COVID-19; Z59.0 Homelessness; Z79.84 Long term (current) use of oral hypoglycemic drugs; Z79.899 Other long term (current) drug therapy; Z90.49 Acquired absence of other specified parts of digestive tract
CPT/HCPCS: 36415; 71045; 80048; 80053; 80305; 81001; 82550; 82553; 83735; 83880; 84484; 85025; 87081; 93005; 99285; J1650; J1940; J3475

== ENCOUNTER 2021-05-15 06:15 | Inpatient (IN) | payer OTHER, SELFPAY ==
[~2021-05-15] VITALS: Ht 149.9 cm; Wt 49.4 kg
[~2021-05-15 06:15] MED LIST changes: +ASPI-1856 PO; +POTA10TE30 PO
[2021-05-15 06:18] VITALS: BP 167/88
--- NOTE | 2021-05-15 06:18 | NUR ---
TO BED VIA WHEELCHAIR
--- NOTE | 2021-05-15 06:20 | NUR ---
60 F, BIB FRIEND FOR C/O GENERALIZED PAIN AND BODY ACHES. PT C/O FACIAL SWELLING +1-2. PT ABLE TO MOVE ALL EXTREMITIES DENIES NUMBNESS/TINGLING. SR/ST ON MONITOR. DENIES CP/SOB @ THIS TIME. SKIN INTACT. PT HOMELESS. ROWENA LOCKED IN LOWEST POSITION. ERMD @ BEDSIDE. NKA RX: DENIES HX: CHF
--- NOTE | 2021-05-15 06:54 | NUR ---
SANDWICH AND BLANKET GIVEN
--- NOTE | 2021-05-15 07:16 | NUR ---
REPORT GIVEN TO DAY SHIFT FOR CONTINUITY OF CARE
--- NOTE | 2021-05-15 07:17 | NUR ---
REPORT RECEIVED FROM VICTORINA AC FOR CONTINUITY OF CARE
[2021-05-15 08:35] LABS: BASOPHILS # (AUTO) 0.1 K/uL (0.00-0.22); EOSINOPHILS # (AUTO) 0.2 K/uL (0-0.4); EOSINOPHILS % (AUTO) 2.2 % (0.0-4.0); HEMATOCRIT 39.7 % (36-48); HEMOGLOBIN 12.4 g/dL (12.0-16.0); LYMPHOCYTES # (AUTO) 1.4 K/uL (2.5-16.5); LYMPHOCYTES % (AUTO) 20.1 % (20.5-51.1); MEAN CORPUSCULAR HEMOGLOBIN 29 pg (27-31); MEAN CORPUSCULAR HGB CONC 31 g/dL (33-37); MEAN CORPUSCULAR VOLUME 91.4 fL (80-94); MONOCYTES % (AUTO) 13.9 % (1.7-9.3); NEUTROPHILS # (AUTO) 4.2 K/uL (1.8-7.7); NEUTROPHILS % (AUTO) 61.8 % (42.2-75.2); PLATELET COUNT (AUTO) 261 K/uL (140-450); RED BLOOD CELL COUNT(AUTO) 4.35 MIL/uL (4.20-5.40); RED CELL DISTRIBUTION WIDTH 19.3 % (11.6-13.7); WHITE BLOOD COUNT (AUTO) 6.9 K/uL (4.8-10.8)
[2021-05-15 08:36] LABS: ANION GAP 15.8 (8-16); CARBON DIOXIDE 19.8 mmol/L (21-32); CREATININE 0.8 mg/dL (0.6-1.3); POTASSIUM 3.6 mmol/L (3.5-5.1)
[2021-05-15 08:41] LABS: ALBUMIN 3.1 g/dL (3.4-5.0); TOTAL BILIRUBIN 0.6 mg/dL (0.0-1.0)
[2021-05-15 08:49] LABS: PROTHROMBIN TIME 12.2 secs (10.8-13.4)
--- NOTE | 2021-05-15 09:30 | NUR ---
Patient resting in bed, awake. Vital Signs within normal limits. Respirations even and unlabored. Chest rise is symmetrical. On room air. Will continue to monitor.
--- NOTE | 2021-05-15 11:00 | NUR ---
Patient resting in bed, awake. Vital Signs within normal limits. Respirations even and unlabored. Chest rise is symmetrical. On room air. Will continue to monitor.
[2021-05-15] MEDS ORDERED: ASPIRIN 81 MG TAB.CHEW PO ONE (13:00)
--- NOTE | 2021-05-15 13:19 | NUR ---
DR. KOO AT PT BEDSIDE FOR FURTHER EVALUATION.
[2021-05-15] MEDS ORDERED: HYDROcodone/APAP 5/325 MG 1 TAB TAB PO PRN (13:30)
[2021-05-15] MEDS ORDERED: ACETAMINOPHEN 325 MG TAB PO PRN (13:30)
[2021-05-15] MEDS ORDERED: MORPHINE SULFATE 4 MG/ML SYR IVP PRN (13:30)
[2021-05-15] MEDS ORDERED: ONDANSETRON 4 MG/2 ML VIAL IVP PRN (13:30)
[2021-05-15] MEDS ORDERED: MAGNESIUM OXIDE 400 MG TAB PO PRN (13:30)
[2021-05-15] MEDS ORDERED: KCL 20 MEQ/WATER INJ PREMIX 200 ML IV PRN (13:30)
[2021-05-15] MEDS ORDERED: FUROSEMIDE 40 MG/4 ML VIAL IVP SCH (13:40)
[2021-05-15] MEDS ORDERED: LISI-648 PO (13:47)
[2021-05-15] MEDS ORDERED: CARV3.122 PO (13:47)
[2021-05-15] MEDS ORDERED: ASPI-1856 PO (13:47)
--- NOTE | 2021-05-15 15:56 | NUR ---
PT ON TELEPSYCH CONSULT
--- NOTE | 2021-05-15 16:12 | NUR ---
PT FINISHED WITH TELE PSYCH CONSULT, PSYCH DOCTOR RECCOMMENDS CASE MANAGEMENT FOR THE PT.
--- NOTE | 2021-05-15 17:56 | NUR ---
Patient will be admitted to care of DR ENRIQUEZ. Admited to MED SURG. Will go to [id number]. Belongings list completed. Report to NICHOL AC.
--- NOTE | 2021-05-15 18:00 | NUR ---
PATIENT ARRIVED TO ROOM 119A. PATIENT IS AAOX4 ABLE TO MAKE NEEDS KNOWN. NO C/O PAIN OR DISTRESS AT THIS TIME. SOB ON EXERTION NOTED. 02 SAT 100% ON RA. ORIENTED PATIENT TO ROOM AND CALL LIGHT. EXPLAINED PLAN OF CARE AND PATIENT VERBALIZED UNDERSTANDING. BODY ASSESSMENT PERFORMED. NOTED BUE/BLE ECCHYMOSIS. BILAT FOOT SKIN PEELING OFF. NO PRESSURE ULCERS OR WOUND NOTED. IV TO THE RAC 20 GAUGE INTACT. SANDWICH, JUICE, AND WATER PROVIDED. TOILETRESS AND TOWELS GIVEN. STABLE CONDITION AT THIS TIME. WILL CONT TO MONITOR.
[2021-05-15 18:47] VITALS: BP 151/94
--- NOTE | 2021-05-15 20:00 | NUR ---
NURSE REPORT REPORT OBTAINED FROM THE DAY NURSE MICHAEL AT 1930 AND THIS NURSE ASSUME CARE OF PATIENT. RECEIVED PATIENT AWAKE AT THE START OF THE SHIFT. ASKING FOR FOOD. NO C/O PAIN OR DISCOMFORT.
--- NOTE | 2021-05-15 21:00 | NUR ---
NURSE NOTES ADMITTED TO [facility]. NEEDED TO LOOK AT PREVIOUS ADMISSION INFORMATION. PATIENT ONLY ASKING FOR FOOD AND FLUIDS. NO C/O PAIN OR DISCOMFORT.
--- NOTE | 2021-05-16 | NUR ---
NURSE NOTES PATIENT ASLEEP WITHOUT ANY SXS OF PAIN OR DISCOMFORT. BUT WHEN SHE WAKE UP, SHE WOULD JUST BE ASKING FOR FOOD.
[2021-05-16 04:00] VITALS: BP 153/100
--- NOTE | 2021-05-16 05:00 | NUR ---
NURSE NOTES LAB DRAWN AND PATIENT ASKED CASTING HOUSE LABORER TO GET SOME PUDDING FOR HER. NO C/O PAIN OR DISCOMFORT. ON RA. VSS. BP 153/100.
[2021-05-16 06:43] LABS: ANION GAP 13.8 (8-16); CARBON DIOXIDE 22.9 mmol/L (21-32); CREATININE 0.9 mg/dL (0.6-1.3); POTASSIUM 3.7 mmol/L (3.5-5.1)
--- NOTE | 2021-05-16 07:15 | NUR ---
NURSE REPORT REPORT GIVEN TO DAYSHIFT NURSE KALEY TO ASSUME CARE OF PATIENT. SBAR GIVEN. ALL QUESTIONS ANSWERED.
--- NOTE | 2021-05-16 07:26 | NUR ---
RECEIVED REPORT FROM SLAB TRIPPER NURSE. PT STABLE. NO S/S OF DISTRESS. CALL LIGHT IN REACH. ALL SAFETY MEASURES IN PLACE.
[2021-05-16 08:00] VITALS: BP 137/94
[2021-05-16] MEDS ORDERED: FUROSEMIDE 40 MG TAB PO ONE (09:00)
[2021-05-16] MEDS ORDERED: FUROSEMIDE 40 MG TAB PO SCH (09:00)
[2021-05-16] MEDS: ENOXAPARIN 40 MG/0.4 ML SYR SUBQ SCH (09:37)
[2021-05-16] MEDS: lisinopriL 20 MG TAB PO SCH (09:40)
[2021-05-16] MEDS: ASPIRIN 81 MG TAB.CHEW PO SCH (09:40)
--- NOTE | 2021-05-16 09:40 | NUR ---
PT RESTING IN BED. MEDICATED PER MD ORDER. EDUCATED ON MEDICATIONS GIVEN. PT VERBALIZED UNDERSTANDING. CALL LIGHT IN REACH. ALL SAFETY MEASURES IN PLACE.
--- NOTE | 2021-05-16 10:12 | NUR ---
PATIENT HAS BEEN SCREENED AND CATEGORIZED MODERATE NUTRITION RISK. PATIENT WILL BE SEEN WITHIN 3-5 DAYS OF ADMISSION. 05/18/21 05/20/[address]
--- NOTE | 2021-05-16 10:28 | NUR ---
NOTIFIED BY LIBBY IN LAB AT 1005 THAT PT TEST IS POSITIVE FOR MRSA IN NARES. CONTACT PRECAUTIONS INITIATED
[2021-05-16] MEDS: CHLORHEXADINE GLUC 2% CLOTH TP SCH (11:54)
[2021-05-16] MEDS: MUPIROCIN CA NASAL 2% 1GM TUBE NS SCH (11:54)
--- NOTE | 2021-05-16 11:59 | NUR ---
PT RESTING IN BED. MEDICATED PER MD ORDER FOR MRSA. PATIENT PROVIDED CHLORHEXIDINE WIPES PER PROTOCOL. EDUCATED ON MEDICATIONS AND WIPES GIVEN. PT VERBALIZED UNDERSTANDING. CALL LIGHT IN REACH. ALL SAFETY MEASURES IN PLACE.
[2021-05-16] MEDS: POTASSIUM CHLORIDE 10 MEQ TABER PO SCH (12:32)
[2021-05-16] MEDS: carvediloL 3.125 MG TAB PO SCH ×2 (12:32→21:00)
--- NOTE | 2021-05-16 13:20 | NUR ---
PT RESTING IN BED. NO S/S OF DISTRESS. PT WAS GIVEN WATER AND SNACKS. BREATHING SYMMETRICAL. CALL LIGHT IN REACH. ALL SAFETY MEASURES IN PLACE.
[2021-05-16 16:00] VITALS: BP 118/82
--- NOTE | 2021-05-16 16:26 | NUR ---
PT RESTING IN BED. NO S/S OF DISTRESS. BREATHING SYMMETRICAL. PT STABLE. CALL LIGHT IN REACH. ALL SAFETY MEASURES IN PLACE. GIVEN CRACKERS
[2021-05-16] MEDS: FUROSEMIDE 40 MG/4 ML VIAL IVP SCH (17:26)
--- NOTE | 2021-05-16 18:35 | NUR ---
PT RESTING IN BED. EYES CLOSED. NO S/S OF DISTRESS. BREATHING SYMMETRICAL. PT STABLE. CALL LIGHT IN REACH. ALL SAFETY MEASURES IN PLACE.
--- NOTE | 2021-05-16 19:20 | NUR ---
ENDORSED PT TO B2B SALES CONSULTANT NURSE. PT STABLE. NO S/S OF DISTRESS. BREATHING SYMMETRICAL. CALL LIGHT IN REACH. ALL SAFETY MEASURES IN PLACE.
--- NOTE | 2021-05-16 20:00 | NUR ---
NURSE REPORT REPORT OBTAINED FROM DAY NURSE KALEY AT 1920 AND THIS NURSE ASSUMED CARE OF PATIENT. VSS. NNO C/O PAIN OR DISCOMFORT.
[2021-05-17 04:00] VITALS: BP 140/97
--- NOTE | 2021-05-17 04:00 | NUR ---
NURSE NOTES VSS. AFEB. NO C/O PAIN OR DISCOMFORT. GIVEN GLASS OF ICE.
[2021-05-17 07:21] LABS: ANION GAP 13.6 (8-16); CARBON DIOXIDE 24.7 mmol/L (21-32); POTASSIUM 4.3 mmol/L (3.5-5.1)
--- NOTE | 2021-05-17 07:35 | NUR ---
NURSE REPORT AND ENDORSEMENT REPORT GIVEN TO DAYSHIFT NURSE TO ASSUME CARE OF PATIENT. ALL QUESTIONS ANSWERED. PATIENT TO BE DC'D BUT SHE IS HOMELESS. NURSE KNOWS THAT CASE MANAGEMENT NEEDS TO BE NOTIFIED. PATIENT IN STABLE CONDITION. NO C/O PAIN OR DISCOMFORT.
--- NOTE | 2021-05-17 08:25 | NUR ---
Troponin 0.[address] Augustin and he gave no new orders. Patient resting comfortably with no shortness of breath and no chest pain.
--- NOTE | 2021-05-17 08:59 | NUR ---
DC PLANNING: THE PATIENT ADMITTED THROUGH THE ER WITH C/O CHEST PAIN AND SOB. 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 THE PATIENT HAS BEEN GIVEN HOUSING RESOURCES, PRESCRIPTION MEDICATIONS AND RESOURCES FOR SUBSTANCE REHAB WHEN SHE WAS ADMITTED IN THE PAST. THE PATIENT ADMITS TO NOT TAKING ANY OF THE MEDICATIONS PRESCRIBED IN THE PAST AND CONTINUATION OF POLYSUBSTANCE ABUSE. PATIENT SEEN BY THE TYPING POOL SUPERVISOR AND STARTED ON LASIX IV WHICH WILL BE TRANSITIONED TO PO. PER CARDIOLOGY THE PATIENT WILL NEED ICD IN THE FUTURE IF SHE IS MEDICATION COMPLIANT AND DOES NOT USE ILLICIT DRUGS. INSPECTOR TESTER SORTER TO SEE THE PATIENT FOR RESOURCES, CM WILL CONTINUE TO FOLLOW FOR NEEDS. Addendum: 05/17/21 at 1828 by Jania Blackwood CM PATIENT IS A 60 YEAR OLD FEMALE ADMITTED TO THE [facility]/ED ON 05/16/2021 WITH HISTORY OF CHF WITH EF BETWEEN 15 TO 20% PATIENT CAME IN TO ED WITH COMPLAINS OF CHEST PAIN AND SHORTNESS OF BREATH FOR ABOUT 3 DAYS. LIFESTYLE CONSULTANT MET WITH PATIENT AT BEDSIDE TO DISCUSS AND COLLECT HER COLLATERAL INFORMATION. PATIENT REPORTED TO CONTINUE HOMELESS IN THE [facility] OF [facility], AND BEEN ABLE TO STAY SOMETIMES WHEN SHE IS CLEAN OF DRUGS IN A ORTHODOX IN [place]. PER PATIENT SHE DO NOT HAVE AN ADVANCE DIRECTIVES IN PLACE AND IS NOT INTERESTED ON GETTING A.D. INF. AND RESOURCES PROVIDED BY . PATIENT REPORTED HAVING NO ISSUES GETTING AND TAKING PRESCRIBED MEDICATIONS HOWEVER SHE DOESN'T WANT TO TAKE THEM. PATIENT ALSO REPORTED BEEN ABLE TO AMBULATE INDEPENDENTLY WITH OUT ANY ASSISTANCE AND NOT NEEDING OR HAVING ANY DME, PER PATIENT SHE HAS NOT MET YET WITH HER PCP ASSIGNED MD LUCAS BY HER [facility] INS. PATIENT REFUSED SCHEDULED FOLLOW UP APPOINTMENT REQUIRED BY [facility]. STATED " I WILL NOT GO IF I FEEL SICK ILL JUST COME TO THE HOSPITAL" PATIENT ENDED VISIT WITH SW BY STATING " IM TIRED IM GOING TO SLEEP " TURN AROUND IN HER BED AND SW LEFT THE ROOM. SW WILL FOLLOW UP WITH PATIENT NEEDED.
[2021-05-17] MEDS ORDERED: FURO40TA9 PO (09:29)
[2021-05-17] MEDS ORDERED: POTA10TE30 PO (09:29)
[2021-05-17] MEDS ORDERED: ASPI-1856 PO (09:29)
[2021-05-17] MEDS ORDERED: CARV3.122 PO (09:29)
[2021-05-17] MEDS ORDERED: LISI-648 PO (09:29)
[2021-05-17] MEDS: ENOXAPARIN 40 MG/0.4 ML SYR SUBQ SCH (11:08)
[2021-05-17] MEDS: ASPIRIN 81 MG TAB.CHEW PO SCH (11:09)
[2021-05-17] MEDS: POTASSIUM CHLORIDE 10 MEQ TABER PO SCH (11:09)
[2021-05-17] MEDS: carvediloL 3.125 MG TAB PO SCH (11:10)
[2021-05-17] MEDS: FUROSEMIDE 40 MG/4 ML VIAL IVP SCH (11:11)
[2021-05-17] MEDS: MUPIROCIN CA NASAL 2% 1GM TUBE NS SCH (11:11)
[2021-05-17] MEDS: lisinopriL 20 MG TAB PO SCH (11:11)
[2021-05-17] MEDS: CHLORHEXADINE GLUC 2% CLOTH TP SCH (11:12)
[2021-05-17 15:04] VITALS: BP 112/53
--- NOTE | 2021-05-17 15:40 | NUR ---
Patient given education on medications,disease process and importance of following up to pick medications, her pcp and following doctor's order to not start or stop any medications without notifying Physician. Patient verbalized understanding and taken off the unit in wheeled chair and has no further needs.
== END 2021-05-17 15:20 | disposition home or self-care (01) | DRG 194 ==
LOC: MED 06:15 → MMU 13:32 → MTU 17:40 → OBSVTOIN 05-16 09:00
PROVIDERS: ADMIT Student in an Organized Health Care Education/Training Program; ATTEND Student in an Organized Health Care Education/Training Program
DX: I11.0 Hypertensive heart disease with heart failure (principal); E44.0 Moderate protein-calorie malnutrition; I42.0 Dilated cardiomyopathy; R65.10 Systemic inflammatory response syndrome (SIRS) of non-infectious origin without acute organ dysfunction; E87.8 Other disorders of electrolyte and fluid balance, not elsewhere classified; I50.23 Acute on chronic systolic (congestive) heart failure; E78.5 Hyperlipidemia, unspecified; Z20.822 Contact with and (suspected) exposure to COVID-19; Z91.14 Patient's other noncompliance with medication regimen
CPT/HCPCS: 96374; 99291; G0378; 36415; 71045; 80048; 80053; 83735; 83880; 84484; 85025; 85610; 85730; 87081; 93005; J1650; J1940; Q0092